=== PATIENT | male | born 1990 ===

== ENCOUNTER 2020-01-26 15:55 | Emergency (ER) | payer OTHER ==
[2020-01-26] MEDS ORDERED: clonazePAM 1 MG TAB ONE (16:43)
--- NOTE | 2020-01-26 17:09 | RAD ---
Chest AP view INDICATION: Tachycardia COMPARISON: None FINDINGS: Lungs: The lungs are clear Cardiac silhouette: The cardiomediastinal silhouette appears within normal limits. Pulmonary vasculature: Normal Pleural spaces: No pleural effusion or pneumothorax is demonstrated. Upper abdomen: No abnormality seen. Osseous structures: No acute osseous abnormality. Additional findings: None. IMPRESSION: No acute cardiopulmonary abnormality.
[2020-01-27 15:06] LABS: SARS-CoV-2 MS2 Positive; SARS-CoV-2 N Gene Negative; SARS-CoV-2 S Gene Negative; SARS-CoV-2 orf1ab Negative
== END 2020-01-26 18:14 | disposition home or self-care (01) ==
LOC: ERS 15:55
DX: Z20.828 Contact with and (suspected) exposure to other viral communicable diseases (principal); F41.9 Anxiety disorder, unspecified; F32.9 Major depressive disorder, single episode, unspecified; Z79.899 Other long term (current) drug therapy
CPT/HCPCS: 71045; 87635; 93005; U0003